=== PATIENT | female | born 1930 | race Caucasian/White ===

== ENCOUNTER 2017-04-20 06:54 | Day surgery (SDC) | payer MEDICARE, OTHER ==
[~2017-04-20] VITALS: Ht 147.3 cm; Wt 57.6 kg
--- NOTE | ~2017-04-20 | OP ---
PATIENT NAME: MIKE STAHL MEDICAL RECORD: [id number] :31 LOCATION:D.M2 D.2131 ADMISSION DATE: SURGEON: SORAIDA KEE MD DATE OF OPERATION: 04/20/2017 PREOPERATIVE DIAGNOSES: End-stage renal disease and dependence on hemodialysis and displacement of vascular dialysis catheter with malposition especially long catheter via the right internal jugular vein. POSTOPERATIVE DIAGNOSES: End-stage renal disease and dependence on hemodialysis and displacement of vascular dialysis catheter with malposition especially long catheter via the right internal jugular vein. OPERATION PERFORMED: 1. Implantation of a 4-7 mm taper PTFE loop AV graft in the right forearm between the brachial artery and the basilic vein. 2. Tunneled dialysis catheter exchanged under C-arm fluoroscopy via the right internal jugular vein. ANESTHESIA: Local and IV sedation for the HemoSplit catheter exchange and regional nerve block for the forearm loop graft. SURGEON: Soraida Kee MD. ANESTHESIA: Regional nerve block and IV sedation per Dr. Lopez and ALFALFA DEHYDRATOR OPERATOR. REFERRING PHYSICIAN: Dr. Fred Estevez. PREOPERATIVE NOTE: Ms. Stahl is an 86-year-old white female patient, who began hemodialysis recently with a tunneled dialysis catheter placed at [facility]. She now needs long-term access. She has very thin skin and fragile vessels, though appears to have adequate sized superficial veins in her left arm and forearm to support an AV fistula or AV graft. She is on dialysis now at [facility] on Tuesdays, , and Saturdays at 10:30 a.m. When I saw the patient earlier in the week for a vein mapping, I noted that I thought she would be a better candidate for an AV graft and discussed this at length with her family, who are very concerned about her having further operations and general anesthesia was especially significant concern. There were pleased with our recommendation for forearm loop graft if that were possible and could be done successfully. I also performed limited fluoroscopy on Sunday and saw that the patient's right internal jugular HemoSplit catheter is excessively long, it is a 35 cm long HemoSplit the exit sites basically in the right breast and the proximal end of the catheter, the venous limb appears to possibly be in the right ventricle. I advised that the catheter be exchanged. PROCEDURE IN DETAIL: Under regional block anesthesia and mild sedation, the patient was prepped and draped in a sterile manner. The left arm was treated with an application of topical nitroglycerin paste. I made a transverse incision over the proximal forearm and exposed the brachial artery and the basilic vein or primary basilic vein runoff at that level. The vein itself was about 4 mm in diameter and the artery about 5 mm in diameter and without any evidence of atherosclerosis. I chose a 4-7 mm ____ PTFE graft and placed it in a horseshoe shaped tunnel in the right forearm, very superficial subcutaneously OPERATIVE REPORT [id number] MIKE STAHL and this required a counterincision just proximal to the wrist. I did try to keep the graft tunneled deep to the large cephalic vein in the forearm. The arterial limb was shortened a bit and then bevelled and a 4 mm diameter graft sutured to the side of the brachial artery with running 6-0 Prolene. After making the arteriotomy, the artery was flushed proximally and distally with heparinized saline and Silastic loops were used to occlude the artery as needed. The venous anastomosis was performed with running 6-0 Prolene end-to-side, this being about 7 mm diameter graft at that point. The vein also was flushed with heparinized saline and when the anastomoses were completed, both anastomoses were sealed with Evicel glue or sealant and then after 2 minutes with release of the occluding clamps and loops, excellent flow was established in the new graft and there was no bleeding. The wound was then closed with interrupted inverted subcuticular or subcutaneous 3-0 Vicryl and Dermabond glue. Again, the skin was very thin and fragile. I dressed it with Maxorb Ag, Tegaderm and Cavilon skin prep in the usual manner. The patient's right chest and neck were then exposed having already been prepped and draped. I infiltrated local anesthesia at the base of the neck over the catheter at the site where it turns down into the internal jugular vein. I also infiltrated the skin and subcutaneous tissues overlying and surrounding the palpable Dacron felt cuff in the subcutaneous tunnel. I made an incision at the base of the neck and exposed the catheter and dissected it from surrounding tissues, clamped and divided it. I then used blunt dissection to dissect the Dacron felt cuff from the surrounding tissues and the subcutaneous tunnel and removed the external portion of the catheter and discarded it. I then chose a 19-cm long HemoSplit and using fluoroscopy to help identify the proper exit site for the new catheter and a stab incision under local anesthesia was made there and the catheter tunneled from that site up to the cervical incision. The intravascular portion of the original HemoSplit was then removed over a guidewire under fluoroscopy and peel-away dilator sheath was inserted under fluoroscopy over the wire. The new catheter was then inserted through the peelaway sheath. Its tip reached well down into the right atrium, but appears to be in a very satisfactory position without any evidence of passage into the ventricle or proximity to the valve. The catheter was accessed and aspirated, free return of blood from each lumen confirmed. They were then flushed with saline and then heparin lock solution 100 units per cc. The cervical wound was approximated with interrupted inverted 3-0 Vicryl and Dermabond glue and dressed with Maxorb Ag, Tegaderm and Cavilon skin prep. The exit site of was dressed with first Dermabond glue and then a Biopatch chlorhexidine dressing. Further dry dressings were then applied over that. The old catheter exit site was also covered with a clean, dry dressing. There was no bleeding. The patient tolerated the procedure extremely well, was taken to the recovery room in stable condition. Blood loss during the operation was ____. All sponges, instruments, and needles were accounted for. No drain was used and no surgical specimen was submitted for histopathology. The patient will be kept in overnight observation primarily because of her age and fragility and will need to be sure that she stable after the anesthetic and has adequate pain control and this observed for bleeding or other complications. I expect though that she will be able to be discharged from the hospital in the morning and go on over to the [facility] for dialysis there, her usual 10:30 time. I will plan to see her back in my office in a little over a week and remove her dressings and examine her wounds at that time and I OPERATIVE REPORT [id number] MIKE STAHL planned no new prescriptions at this point, though we will recommend Tylenol p.r.n. for pain or discomfort. TRANSINT:[id number] Voice Confirmation ID: [id number] DOCUMENT ID: [id number] SORAIDA KEE MD CC: FRED ESTEVEZ MD [id number] DICTATION DATE: 04/20/17 163 CASH SHORTAGE INVESTIGATOR: 04/21/17 0430 [facility] [address] [facility], [facility]
[2017-04-20] MEDS ORDERED: TOPROL XL50 MG PO (09:34)
[2017-04-20 09:39] LABS: BASOPHILS 0 % (0-2); EOSINOPHILS 0 % (0-7); HEMATOCRIT 32.4 % (36.0-48.0); HEMOGLOBIN 10.3 g/dL (12-16); IMMATURE GRANULOCYTES 0.3 % (0-5); MCH 29.1 pg (26.0-34.0); MCHC 31.8 g/dL (31.0-37.0); MCV 91.5 fL (80.0-100.0); MEAN PLATELET VOLUME 10.7 fL (7.4-10.4); MONOCYTES 9.5 % (2-11); NEUTROPHILS 71.2 % (40-80); PLATELET COUNT 282 10x3/uL (130-400); RBC 3.54 10x6/uL (4.00-5.40); RDW 15.7 % (11.5-14.5); WBC 9.7 10x3/uL (4.8-10.8)
[2017-04-20 09:45] LABS: CALCIUM 8.9 mg/dL (8.5-10.1); CARBON DIOXIDE 27.8 mmol/L (21.0-32.0); CREATININE - SERUM 3.4 mg/dL (0.6-1.3)
[2017-04-20 09:47] LABS: APTT 41.5 SECONDS (22.8-39.4); INR 2.26 (0.85-1.17)
[2017-04-20 09:49] VITALS: BMI 25.3
[2017-04-20 09:50] LABS: ANION GAP 11.8 mmol/L (8-16); POTASSIUM - SERUM 4.6 mmol/L (3.5-5.1)
[2017-04-20] MEDS ORDERED: NORVASC5 MG PO (10:11)
[2017-04-20] MEDS ORDERED: NYSTATIN1 PWD TOPICAL (10:12)
[2017-04-20] MEDS ORDERED: DECADRON4 MG PO (10:14)
[2017-04-20] MEDS ORDERED: ULTRAM50 MG PO (10:15)
[2017-04-20] MEDS ORDERED: VALTREX500 MG PO (10:15)
[2017-04-20] MEDS ORDERED: MUPIROCIN22 GM TOPICAL (10:16)
[2017-04-20 17:27] VITALS: BP 115/64
--- NOTE | 2017-04-20 17:30 | NUR ---
SITTING UP IN BED WITH SLING TO LEFT ARM. DRESSING CDI. VS STABLE. CALL LIGHT WITHIN REACH. DENIES NEEDS
[2017-04-20 17:59] VITALS: BP 115/64
[2017-04-20 18:44] VITALS: BP 115/64; Ht 147.3 cm; Wt 57.6 kg
[2017-04-21] VITALS: BP 134/59
[2017-04-21 04:00] VITALS: BP 158/63
--- NOTE | 2017-04-21 07:20 | NUR ---
AM ROUNDS- PT IN BED, REPOSITIONED IN BED. PT DENIES ANY OTHER NEEDS AT THIS TIME. CALL LIGHT IN REACH, SON AT BEDSIDE, NAD NOTED, WILL CONTINUE TO MONITOR.
--- NOTE | 2017-04-21 08:41 | NUR ---
PROVIDED DISCHARGE TEACHING TO PT AND SON, BOTH VERBALIZED UNDERSTANDING REGARDING DISCHAGE TEACHING. D/C RT FOREARM IV, TIP INTACT, HELPED PT GET DRESSED. PT WILL NOTIFY NURSE OR LINSEED OIL TEMPERER WHEN READY TO GO. NAD NOTED, WILL CONTINUE TO MONITOR.
[2017-04-21 08:54] VITALS: BP 110/41
--- NOTE | 2017-04-21 09:57 | NUR ---
PT LEFT UNIT VIA WHEELCHAIR, ACCOMPANIED BY SON, NAD NOTED.
== END 2017-04-21 10:00 | disposition home or self-care (01) ==
LOC: D.OPS 06:54 → D.M2 16:33 → D.OPS 04-21 10:00
PROVIDERS: Surgery
DX: T82.898A Other specified complication of vascular prosthetic devices, implants and grafts, initial encounter (principal); N18.6 End stage renal disease; Z99.2 Dependence on renal dialysis

== ENCOUNTER 2017-05-11 06:15 | Day surgery (SDC) | payer MEDICARE, OTHER ==
[2017-05-10 17:01] LABS: BASOPHILS 0 % (0-2); EOSINOPHILS 0.3 % (0-7); HEMATOCRIT 32.3 % (36.0-48.0); HEMOGLOBIN 10.2 g/dL (12-16); IMMATURE GRANULOCYTES 0.3 % (0-5); LYMPHOCYTES 19.4 % (15-50); MCH 29.8 pg (26.0-34.0); MCHC 31.6 g/dL (31.0-37.0); MCV 94.4 fL (80.0-100.0); MEAN PLATELET VOLUME 9.6 fL (7.4-10.4); MONOCYTES 10.9 % (2-11); NEUTROPHILS 69.1 % (40-80); RBC 3.42 10x6/uL (4.00-5.40); RDW 18.5 % (11.5-14.5); WBC 11.9 10x3/uL (4.8-10.8)
[2017-05-10 17:03] LABS: PLATELET COUNT 207 10x3/uL (130-400)
[2017-05-10 17:09] LABS: APTT 43.3 SECONDS (22.8-39.4); INR 2.3 (0.85-1.17); PROTIME 25.4 SECONDS (11.6-15.0)
[2017-05-10 17:20] LABS: ANION GAP 10.8 mmol/L (8-16); CALCIUM 8.3 mg/dL (8.5-10.1); CARBON DIOXIDE 32.2 mmol/L (21.0-32.0); CREATININE - SERUM 1.7 mg/dL (0.6-1.3)
[~2017-05-11] VITALS: Ht 147.3 cm; Wt 55.3 kg
--- NOTE | ~2017-05-11 | OP ---
PATIENT NAME: MIKE STAHL MEDICAL RECORD: [id number] :31 LOCATION:D.LORE ADMISSION DATE: SURGEON: SORAIDA KEE MD DATE OF OPERATION: 05/11/2017 PREOPERATIVE DIAGNOSIS: Thrombosis of left forearm loop PTFE AV graft. POSTOPERATIVE DIAGNOSIS: Thrombosis of left forearm loop PTFE AV graft. OPERATION PERFORMED: Fistulogram with AngioJet mechanical thrombolysis and balloon angioplasty of venous anastomotic stenosis and insertion of a 5 mm x 5 cm Viabahn PTFE covered self-expanding stent. SURGEON: Soraida Kee MD ANESTHESIA: Local with IV sedation or MAC per SHEET METAL DUCT INSTALLER HELPER. REFERRING PHYSICIAN: Dr. Fred Estevez. PREOPERATIVE NOTE: Ms. Stahl is a very nice 86-year-old white female patient who has just recently joined the dialysis population. She is presently dialyzing with a right internal jugular tunneled HemoSplit dialysis catheter and about 2 weeks ago had a left forearm loop PTFE graft implanted. Initially, it seemed to function well, but it has now thrombosed before ever she could be dialyzed with it. She has returned to the operating room to see if we can salvage it. DESCRIPTION OF PROCEDURE: With the patient prepped and draped in a sterile manner, she was sedated and monitored by SHEET METAL DUCT INSTALLER HELPER. Local anesthetic 1% lidocaine was used to infiltrate the skin and subcutaneous tissues as needed. The graft was accessed along the arterial limb directed proximally using micropuncture technique. A 6-Irish sheath was inserted. Over a 0.035 angled Glidewire, the AngioJet catheter was used to lyse thrombus in the arterial limb and a Cinthia catheter was utilized to retrieve the arterial plug. Repeated contrast injection demonstrated a normal brachial artery and branch pattern. Another introducer was inserted in the arterial limb directed distally towards the hand. The wire was passed and a Rickey catheter was inserted. It reached as far as the antecubital space, but would not pass in the arm. It took multiple attempts to finally pass the wire and Rickey glide catheter into the basilic vein above the antecubital space. Contrast injection there demonstrated a small but otherwise normal basilic vein and we subsequently dilated the venous anastomotic stenosis with a 4 mm balloon and subsequently as well with a 5 mm angioplasty balloon and then to maintain patency, a 5-mm diameter x 5 cm Viabahn stent was inserted. Contrast injection revealed a very satisfactory result. The patient had been given 2000 units of heparin early on in the operation. This was partially reversed with 10 mg of protamine at its conclusion. The ports were removed and hemostasis obtained at the puncture sites with 4.0 [id number] Prolene sutures and direct pressure. The sites were subsequently dressed with Avitene Ultrafoam, Tegaderm, and Cavilon skin prep. The patient was then returned to her room in the outpatient department in stable condition with a very nice functioning fistula with good pulse augmentation and bruit and thrill. There was no blood loss during the procedure. All sponges, instruments and needles were accounted for. No drain was used and no surgical specimen was submitted for histopathology. OPERATIVE REPORT [id number] MIKE STAHL She will go home today and continue her home medications and diet and dialysis schedule. She need not return to see me in my office for routine followup, but is encouraged to return or call if she has any problems or questions. Her family and she was given my home or personal cell numbers, so they can call if there is any need after hours. Within about 2 weeks, I think the arm should be ready for dialysis access. Dr. Estevez and associates are competent to decide when this is the case and hence my seeing her back just p.r.n. TRANSINT:[id number] Voice Confirmation ID: [id number] DOCUMENT ID: [id number] SORAIDA KEE MD CC: FRED ESTEVEZ MD [id number] DICTATION DATE: 05/11/17 1543 RIGGING SUPERVISOR: 05/12/17 0052 [facility] 05/11/17 [place] [id number] [place] [id number]
[~2017-05-11 06:15] MED LIST: DECADRON4 MG PO; MUPIROCIN22 GM TOPICAL; NORVASC5 MG PO; NYSTATIN1 PWD TOPICAL; TOPROL XL50 MG PO; ULTRAM50 MG PO; VALTREX500 MG PO
[2017-05-11 07:25] VITALS: BP 138/61; Ht 147.3 cm; Wt 55.3 kg
[2017-05-11] MEDS ORDERED: DECADRON4 MG (07:25)
--- NOTE | 2017-05-11 08:14 | NUR ---
0800 HUSSAIN QUIGLEY ANP NOTIFIED OF PATIENT K LEVEL; ORDERS R/N
--- NOTE | 2017-05-11 08:34 | NUR ---
0825 POTASSIUM 10MEQ/100CC BAG STARTED OM IVAC AT 10CC/HR
--- NOTE | 2017-05-11 10:25 | NUR ---
LEFT ARM PREVIOUS FISTULA NOTED, BRUISING NOTED, PREVIOUS HEALING INCISION INTACT. PREP LEFT ARM FINGERS TO ARM PIT LEFT UPPER CHEST LEFT NECK.
== END 2017-05-11 13:40 | disposition home or self-care (01) ==
LOC: D.OPS 06:15 → D.PAN 08:00 → D.OPS 08:30 → D.PAN 08:30 → D.OPS 13:40
PROVIDERS: Surgery
DX: T82.868A Thrombosis due to vascular prosthetic devices, implants and grafts, initial encounter (principal); Y83.8 Other surgical procedures as the cause of abnormal reaction of the patient, or of later complication, without mention of misadventure at the time of the procedure; N18.6 End stage renal disease; Z99.2 Dependence on renal dialysis